=== PATIENT | male | born 2000 ===

== ENCOUNTER 2022-01-15 23:29 | Emergency (ER) | payer BC ==
[2022-01-16] MEDS ORDERED: Famotidine 20 MG Tab PO ONE (03:12)
[2022-01-16] MEDS ORDERED: diphenhydrAMINE 25 MG Cap PO ONE (03:12)
== END 2022-01-16 04:12 | disposition home or self-care (01) ==
LOC: JD.ED 23:29
DX: L50.9 Urticaria, unspecified (principal)
CPT/HCPCS: 99283; A9270